=== PATIENT | male | born 1960 | race Caucasian/White ===

== ENCOUNTER → 2021-10-02 12:43 | Outpatient (CLI) | payer BC, SELFPAY | PROVIDERS: Visit Provider Urology | DX: Z01.812 Encounter for preprocedural laboratory examination (principal); Z11.52 Encounter for screening for COVID-19; R97.20 Elevated prostate specific antigen [PSA] | CPT/HCPCS: C9803; U0003; U0005 ==

== ENCOUNTER 2021-10-05 09:01 | Day surgery (SDC) | payer BC, SELFPAY ==
[2021-10-02 10:58] VITALS: BMI 29.8
[2021-10-05 09:30] VITALS: BP 137/79; PULSE 79; RESP 18; TEMP 36.4; O2SAT 99
--- NOTE | 2021-10-05 10:06 | HMH.ANESCL ---
[facility] Anesthesia Checklist - Patient Identification Patient Identification: Arm Band, Verbal (Name & ) - Structural Data Admitted From: Home Planned Operative Procedure/s: Prostate BX Consent for Planned Operative Procedure(s) Verified: Yes Verified Documents: Surgical Consent - NPO Status Verified Time NPO: 00:00 - Additional verifications Anesthesia Reactions: No Hx Blood Transfusions: No Blood Transfusion Reaction: No - Airway Assessment C-Spine Mobility Assessed: Yes TMJ Mobility Assessed: Yes Dentition: Good Dentition - Neurological Assessment Level of Consciousness: Awake, Alert, Appropriate - Anesthesia Plan Anesthesia Risk discussed: Yes ASA Class: II Anesthesia Type: MAC [facility] History I have reviewed the patient's past medical history: Yes Medical History: Reports:: Hyperlipidemia, Hypertension Denies:: Cancer, Diabetes Mellitus Type 1, Diabetes Mellitus Type 2, Internal Pacemaker, MRSA, Seizures *Have you ever received a pneumonia vaccine?: No *Have you received a flu vaccine this season?: No Other Medical History: Reports: Arthritis. Denies: Blood Transfusion Reaction Anesthesia experience/problems:: none Other Surgeries: Yes: No Previous Surgery, Colonoscopy. No: Pacemaker Amputation: No Fractures: No - *Social History Last grade of school completed: High school graduate Smoking Status: Current every day smoker Tobacco Type: cigarettes # Packs/Day (cigarettes): 1 Alcohol Intake: never Alcohol Intake Frequency:: a few times a week Substance Use Type: denies use *Occupational Status:: employed Housing: house Household Members: spouse *Travel in the last 8 weeks: None Family Hx:: Cancer, Diabetes, Heart Attack, Hypertension
[2021-10-05 11:30] VITALS: BP 119/80; PULSE 66; RESP 18; TEMP 36.1; O2SAT 99
--- NOTE | 2021-10-05 11:42 | P.OP_ITS ---
Date of procedure: 10/05/21 Pre-op Diagnosis:: Elevated PSA Post-op Diagnosis:: Elevated PSA Procedure performed:: Transrectal ultrasound-guided prostate biopsy Surgeon:: Mahesh Crane MD HYDRAULIC PILE HAMMER OPERATOR:: Gordo Fischer Anesthesia: MAC Estimated blood loss (mL): 0 Clinical Note:: 60-year-old white male with PSA of 5.7 and abnormal digital rectal examination with some irregularity on the right side of prostate presents for prostate biopsy. Operative findings:: Prostate measured 36.8 cm?. There was some hypoechoic areas on the right side. No evidence of calcifications or hyperechoic areas. Operative note:: Patient taken to the operating room after informed consent was obtained. He had taken preoperative oral antibiotics and enema preoperatively. Monitored anesthesia care was administered and patient placed into the left lateral decubitus position. After adequate analgesia the transrectal ultrasound probe was placed into the rectum and the prostate was easily visualized. It was measured at 36.8 cm?. There was evidence of a couple of hypoechoic areas on the right side but none on the left. There is no evidence of calcifications or hyperechoic areas. Local anesthetic was placed into the neurovascular bundles bilaterally and 14 biopsies then taken with 2 biopsies from the right lateral midportion and 2 from the left apex. No bleeding was noted during the case. The probe removed. Patient tolerated well. Condition: stable Disposition: same day Specimens:: Prostate biopsy x14 Complications:: None
[2021-10-05 11:45] VITALS: BP 123/77; PULSE 59; RESP 18; O2SAT 98
[2021-10-05 12:00] VITALS: BP 125/87; PULSE 68; RESP 18; O2SAT 99
== END 2021-10-05 12:00 | disposition home or self-care (01) ==
LOC: OR 09:03
PROVIDERS: PCP Family Medicine; Visit Provider Urology
PROC: (CPT 55700; principal; 2021-10-05 10:30)
DX: R97.20 Elevated prostate specific antigen [PSA] (principal); E78.5 Hyperlipidemia, unspecified; I10 Essential (primary) hypertension; M19.90 Unspecified osteoarthritis, unspecified site; Z72.0 Tobacco use; Z79.82 Long term (current) use of aspirin; Z79.899 Other long term (current) drug therapy; Z80.9 Family history of malignant neoplasm, unspecified; Z83.3 Family history of diabetes mellitus; Z82.3 Family history of stroke; Z82.49 Family history of ischemic heart disease and other diseases of the circulatory system
CPT/HCPCS: 55700; 76942

== ENCOUNTER 2022-03-04 08:33 | Day surgery (SDC) | payer BC, SELFPAY ==
[2022-03-01 08:33] VITALS: BMI 30.4
[2022-03-04 08:58] VITALS: BP 134/89; PULSE 82; RESP 18; TEMP 36.3; O2SAT 96
--- NOTE | 2022-03-04 09:30 | P.PN_ITS ---
[facility] Medical History Hyperlipidemia Hypertension Surgical History History of prostate biopsy Family History Mother Family history of cancer Social History Smoking Status: Current some day smoker tobacco type: cigarettes packs per day: 1 alcohol intake: current substance use type: denies use current occupational status: employed Travel in the last 8 weeks: None household members: spouse housing: house caffeine: Yes [facility] Anesthesia Checklist Patient Identification Patient Identification: Arm Band and Family Structural Data Admitted From: Home Planned Operative Procedure/s: colonoscopy Consent for Planned Operative Procedure(s) Verified: Yes Verified Documents: Surgical Consent and History and Physical NPO Status Verified Time NPO: 00:00 Additional verifications Patient : No Anesthesia Reactions: No Hx Blood Transfusions: No Blood Transfusion Reaction: No Cephalosporin Allergy: No Previous Colonoscopy: No Cardiovascular Assessment Heart Sounds: S1 & S2 Peripheral Edema: No Airway Assessment C-Spine Mobility Assessed: Yes TMJ Mobility Assessed: Yes Dentition: Good Dentition Neurological Assessment Level of Consciousness: Awake, Alert, Appropriate and Follows Commands Hx Seizures: No Numbness or tingling in extremities: No Genitourinary Assessment Voided infection prevention specialist to O.R.: Yes Anesthesia Plan Anesthesia Risk discussed: Yes ASA Class: II Anesthesia Type: MAC
[2022-03-04 09:38] VITALS: O2SAT 99
--- NOTE | 2022-03-04 09:45 | HMH.SCOPE ---
Procedure: Date: 03/04/22 Patient Date of :: 1960 Procedure Performed:: Screening colonoscopy Indications:: Screening for colon cancer - low risk Performing Provider:: Aida Harris MD Referring Provider:: Ramon Christianson MD Sedation:: Propofol Procedure:: After placing the patient in the left lateral decubitus position, the colonoscopy was gently inserted into the rectum and under direct visualization advanced to the cecum which was identified by transillumination in the right lower quadrant, identification of the ileocecal valve, appendiceal orifice, and cecal strap. Color, texture, mucosa, and anatomy of the colon were carefully examined with the scope. Findings:: Anal canal: normal Rectum: normal Sigmoid colon: normal without polyps or inflammatory changes Descending colon: normal without polyps or inflammatory changes Splenic flexure: normal Transverse colon: normal without polyps or inflammatory changes Hepatic flexure: normal Ascending colon: normal without polyps or inflammatory changes Cecum: normal Terminal ileum: not visualized Impression: Normal colonoscopy Recommendations:: Follow up evaluation in about TEN years or so, sooner if clinically indicated Complications:: None Estimated blood obtained (mL): 0
[2022-03-04 09:52] VITALS: BP 102/72; PULSE 69; RESP 18; TEMP 36.1; O2SAT 95
[2022-03-04 10:02] VITALS: BP 123/79; PULSE 66; RESP 17; O2SAT 95
[2022-03-04 10:12] VITALS: BP 115/83; PULSE 68; RESP 18; O2SAT 95
[2022-03-04 10:22] VITALS: BP 142/87; PULSE 72; RESP 18; O2SAT 97
== END 2022-03-04 10:28 | disposition home or self-care (01) ==
PROVIDERS: PCP Family Medicine; Visit Provider Internal Medicine Gastroenterology
PROC: 0DJD8ZZ Inspection of Lower Intestinal Tract, Via Natural or Artificial Opening Endoscopic (ICD-10-PCS; CPT 45378; principal; 2022-03-04 09:30)
DX: Z12.11 Encounter for screening for malignant neoplasm of colon (principal); Z72.0 Tobacco use; Z79.899 Other long term (current) drug therapy
CPT/HCPCS: 45378

== ENCOUNTER → 2022-04-30 08:18 | Outpatient (CLI) | payer BC, SELFPAY ==
--- NOTE | 2022-04-30 | CA_ITS ---
APPROVED REPORT Exam: Exercise Treadmill Technologist: Kelli Teran, Ht: 6 ft 4 in Wt: 250 lbs BSA: 2.44 m2 HR: 75 bpm BP: 154/103 mmHg Medical History Medications: Aspirin,,,,, RoSUVASTATIN,,,,, Stress Test Details Test: Davie HR Resting HR: 78 bpm Max Heart Rate (APMHR): 159 bpm Max HR Achieved: 138 bpm Target HR (85% APMHR): 135 bpm % of APMHR: 87 Recovery HR: 88 bpm BP Resting BP: 157/108 mmHg Max BP: 217/104 mmHg Recovery BP: 169.0/99.0 mmHg ECG Resting ECG: SR Clinical Exercise duration: 07:43 min Highest Stage Achieved: III Exercise capacity: 10.1 METs Stress ECG Conclusion Symptoms: No chest pain. SOA with peak exercise. Stopped due to leg pain Arrhythmias/Ectopy: PVCs noted- ventricular couplet @ peak exercise. ST depression of 2mm at exercise. Is upsloping, but coupled with poor fitness and exercise induced PVCs, I would consider this a postiive test and recommend further evaluation for cardiac ischemia. Test Summary REST . . . . . . . Sitting REST . . . . . . . Standing REST 07:09 0.0 0.0 78 . 157/108 . . Stage 1 01:00 10.0 1.7 93 . . . . Stage 1 02:00 10.0 1.7 102 . . . . Stage 1 03:00 10.0 1.7 104 . 182/102 . . Stage 2 01:00 12.0 2.5 112 . . . . Stage 2 02:00 12.0 2.5 115 . . . . Stage 2 03:00 12.0 2.5 119 . 178/106 . . Stage 3 01:00 14.0 3.4 129 . . . . Stage 3 01:43 14.0 3.4 137 . . . Stop exercise at 07:43 RECOVERY 01:00 0.0 0.0 115 . 190/102 . . RECOVERY 02:00 0.0 0.0 109 . 190/102 . . RECOVERY 03:00 0.0 0.0 97 . 217/104 . . RECOVERY 04:00 0.0 0.0 96 . 191/ 97 . . RECOVERY 05:00 0.0 0.0 93 . 191/ 97 . . RECOVERY 06:00 0.0 0.0 91 . 172/ 98 . . RECOVERY 07:00 0.0 0.0 91 . 172/ 98 . . RECOVERY 08:00 0.0 0.0 91 . 170/ 92 . . RECOVERY 09:00 0.0 0.0 88 . 169/ 99 . . RECOVERY 09:07 0.0 0.0 87 . 169/ 99 . . Electronically signed by : Karri Christianson MD 04/30/2022 16:43:49
== END ==
PROVIDERS: PCP Family Medicine; Visit Provider Family Medicine
DX: I10 Essential (primary) hypertension (principal); I49.9 Cardiac arrhythmia, unspecified
CPT/HCPCS: 93017

== ENCOUNTER → 2022-06-02 07:53 | Outpatient (CLI) | payer BC, SELFPAY ==
--- NOTE | 2022-06-02 | CA_ITS ---
APPROVED REPORT Exam: Exercise Treadmill Technologist: Latasha Dill Ht: 6 ft 4 in Wt: 250 lbs BSA: 2.44 m2 HR: 76 bpm BP: 144/100 mmHg Indications: Abnormal GXT, REN Medical History Medications: Amlodipine,,,,, Aspirin,,,,, Losartan,,,,, HCTZ,,,,, Stress Test Details Test: Davie HR Resting HR: 84 bpm Max Heart Rate (APMHR): 159.163747 bpm Max HR Achieved: 138 bpm Target HR (85% APMHR): 135.300215 bpm % of APMHR: 86.79 Recovery HR: 90 bpm BP Resting BP: 144.0/100.0 mmHg Max BP: 192.0/100.0 mmHg Recovery BP: 145.0/85.0 mmHg ECG Resting ECG: Normal sinus rhythm, left axis deviation, incomplete right bundle branch block, PVC Clinical Exercise duration: 08:31 min Highest Stage Achieved: Exercise capacity: 10.1 METs Stress ECG Conclusion Patient exercised 8:30 on Davie Protocol going into stage III. Test stopped due to shortness of air, fatigue. Symptoms: No chest pain. Arrhythmias/Ectopy: Occasional PVC. Occasional PAC. ST-T Changes: 1-1.[address] depression anterolaterally. In recovery, the ST depression becomes slightly downsloping. Conclusion: EKG changes positive for ischemia. Myoview images reported separately. Test Summary REST . . . . . . . Sitting REST . . . . . . . Standing REST 05:54 0.0 0.0 84 . 144/100 . . Stage 1 01:00 10.0 1.7 95 . . . . Stage 1 02:00 10.0 1.7 98 . . . . Stage 1 03:00 10.0 1.7 100 . 184/104 . . Stage 2 01:00 12.0 2.5 107 . . . . Stage 2 02:00 12.0 2.5 111 . . . . Stage 2 03:00 12.0 2.5 114 . 192/100 . . Stage 3 01:00 14.0 3.4 125 . . . . Stage 3 . . . . . . . Myoview Injected Stage 3 02:00 14.0 3.4 132 . . . . Stage 3 02:31 14.0 3.4 135 . . . Stop exercise at 08:31 RECOVERY 01:00 0.0 0.0 116 . . . . RECOVERY 02:00 0.0 0.0 103 . . . . RECOVERY 03:00 0.0 0.0 99 . 188/ 88 . . RECOVERY 04:00 0.0 0.0 96 . 174/ 90 . . RECOVERY 05:00 0.0 0.0 96 . 174/ 90 . . RECOVERY 06:00 0.0 0.0 90 . 156/ 84 . . RECOVERY 07:00 0.0 0.0 90 . 145/ 85 . . RECOVERY 08:00 0.0 0.0 90 . 145/ 85 . . RECOVERY 09:00 0.0 0.0 90 . 144/ 86 . . RECOVERY 09:21 0.0 0.0 89 . 144/ 86 . . Electronically signed by : Desmond Escalante MD 06/02/2022 11:14:57
--- NOTE | 2022-06-02 | CA_ITS ---
FINAL REPORT TECHNIQUE: Color Doppler, duplex Doppler and alvarado scale sonography of the bilateral neck arterial vasculature was performed. Velocities were measured in the carotid arteries. Stenosis evaluation based on the validated velocity criteria. CLINICAL HISTORY: .jeremy, abn stress test FINDINGS: The peak systolic velocity of the right common carotid artery is 103 cm/s. The peak systolic velocity of the right internal carotid artery is 103 cm/s and end diastolic velocity 25 cm/s. The ICA/CCA ratio is 1.0. A mild amount of plaque is present. The right external carotid artery is patent. The right vertebral artery is patent with antegrade flow. The peak systolic velocity of the left common carotid artery is 88 cm/s. The peak systolic velocity of the left internal carotid artery is 80 cm/s and end diastolic velocity 20 cm/s. The ICA/CCA ratio is 0 point. A mild amount of plaque is present. The left external carotid artery is patent.The left vertebral artery is patent with antegrade flow. IMPRESSION: Less than 50% bilateral carotid stenoses. Bilateral patent vertebral arteries with antegrade flow. If indicated, CTA or MRA could further evaluate. Reviewed, Interpreted and Dictated by Gentry Ren III, MD Transcribed by Annalee Meyers Authenticated and [facility]
--- NOTE | 2022-06-02 08:03 | NM_ITS ---
APPROVED REPORT Exam: Nuclear Stress Test Indication: HTN, HYPERLIPIDEMIA, FM HX, ABN EKG Patient Location: Outpatient Stress Tech: Kelli Blunt [place] Tech:Germania Alvarado, ARRT, RT (R)(N) Ht: 6 ft 4 in Wt: 254 lbs HR: 84 bpm BP: 144/100 mmHg BSA: 2.45 m2 TID: 1.03 BMI: 30.9 History: HTN, HYPERLIPIDEMIA, FM HX, ABN EKG Procedure: Patient exercised on Davie protocol 8:31 minutes and sec, resting heart rate 84 bpm, resting blood pressure 144/100 mmHg, with exercise maximum heart rate achived was 138 bpm which is 87 % of the maximum predicted heart rate and blood pressure was 192/100 mmHg. Test was stopped due to SOB. Patient has good exercise capacity, achieved 10.1 METs of workload on treadmill, the blood pressure response to exercise was Adequate. Electrocardiogram Resting electrocardiogram shows sinus rhythm right bundle branch block, with exercise there is 1 mm horizontal to downsloping ST segment depression noted from the baseline EKG more pronounced in the recovery. The EKG portion of the exercise Myoview is positive for ischemia. Cardiac Stress and Resting SPECT Images: Cardiac Stress and Resting SPECT images were obtained using technetium 99m Myoview 32.1 mCi stress and 10.03 mCi at rest. Gated SPECT for analysis of segmental wall motion and calculation of the ejection fraction also done. Prone images were also obtained. Cardiac stress and rest SPECT may show a fixed defect involving the inferior wall with decreased contractility in the gated SPECT is likely secondary to myocardial scarring, in addition there is reversible ischemia involving the anterolateral wall. Computer derived ejection fraction is 51% with moderate inferior wall hypokinesis. Conclusion: 1. The EKG portion of the exercise Myoview is positive for ischemia, patient has good exercise capacity achieved 10.1 METs of workload on treadmill, the blood pressure response to exercise was adequate. 2. Scintigraphic evidence of myocardial scarring involving the inferior wall, in addition there is reversible ischemia involving the anterolateral wall, computer derived ejection fraction is 51% with segmental wall motion abnormality described above, right ventricle is normal size and contractility. 3. Abnormal exercise Myoview study. Electronically signed by : Desmond Escalante MD 06/02/2022 11:24:20
--- NOTE | 2022-06-02 09:30 | HMH.ITSHM ---
Current Home Medications as stated by this patient Dennis Perry or kiosk sales representative. []LOSARTAN HYDROCHLOROTHIAZIDE ASA AMLODIPINE
== END ==
PROVIDERS: PCP Family Medicine; Visit Provider Family Medicine
DX: R94.39 Abnormal result of other cardiovascular function study (principal)
CPT/HCPCS: 78452; 93017; 93880; A9502

== ENCOUNTER → 2022-06-17 12:30 | Outpatient (CLI) | payer BC, SELFPAY ==
[2022-06-17 12:58] LABS: Basophils # 0.1 K/mm3 (0-0.2); Basophils % 1.4 % (0.1-2.0); Eosinophils # 0.3 K/mm3 (0.0-0.4); Hematocrit 42.1 % (42.0-52.0); Hemoglobin 14.9 g/dL (14.1-18.0); Lymphocytes # 2.8 K/mm3 (0.7-4.5); Lymphocytes % 31.4 % (10-50); Mean Corpuscular HGB Conc 35.5 g/dL (31.8-35.4); Mean Corpuscular Hemoglobin 31.9 pg (27.0-31.2); Mean Platelet Volume 7.9 fl (7.4-10.4); Monocytes # 0.6 K/mm3 (0.1-1.0); Monocytes % 6.8 % (1.7-9.3); Neutrophils # 5.2 K/mm3 (1.8-7.8); Neutrophils % 57.4 % (37.0-80.0); Platelet Count 307 K/mm3 (142-424); Red Blood Count 4.68 M/mm3 (4.60-6.20); Red Cell Distribution Width 13.6 % (11.5-17.5)
[2022-06-17 13:58] LABS: Anion Gap 8.7 mEq/L (5-15); Blood Urea Nitrogen 21 mg/dl (9-20); Calcium 8.9 mg/dl (8.4-10.2); Carbon Dioxide 31 mmol/L (22.0-30.0); Chloride 103 mmol/L (98-107); Estimated Glomerular Filt Rate 86 ml/min (>60); GFR (African American) 104 ML/MIN (>60); Glucose 90 mg/dl (74-100); Potassium 3.7 mmoL/L (3.5-5.1); Sodium 139 mmol/L (136-145)
== END ==
PROVIDERS: PCP Family Medicine; Visit Provider Physician Assistant
DX: I44.4 Left anterior fascicular block (principal); I10 Essential (primary) hypertension; E78.5 Hyperlipidemia, unspecified; R94.31 Abnormal electrocardiogram [ECG] [EKG]; R94.39 Abnormal result of other cardiovascular function study; I63.9 Cerebral infarction, unspecified; Z82.49 Family history of ischemic heart disease and other diseases of the circulatory system
CPT/HCPCS: 36415; 80048; 85025

== ENCOUNTER 2022-06-18 14:23 | Observation (INO) | payer BC, SELFPAY ==
[2022-06-18] VITALS (19 sets, daily range): BP systolic 125–169; BP diastolic 74–113; PULSE 62–80; RESP 16–20; TEMP 36.4–36.9; O2SAT 95–99; BMI 30.4
--- NOTE | 2022-06-18 07:14 | IR_ITS ---
APPROVED REPORT Patient Location: Outpatient PROCEDURES Left heart catheterization Left ventriculogram Selective coronary angiogram Intravascular lithotripsy to the proximal LAD Drug-eluting stent deployment to the proximal and mid LAD Intravascular ultrasound to the LAD Drug-eluting stent deployment to the ostial proximal and mid circumflex artery Intravascular ultrasound of the circumflex artery Drug-eluting stent deployment to the mid to distal dominant right coronary INDICATION Coronary artery disease, Heavy calcification of the coronary arteries, High risk abnormal Myoview Informed consent was obtained prior to the procedure. COMPLICATIONS NONE Estimated Blood Loss: LESS THAN 10 ML TECHNIQUE One percent lidocaine used to anesthetize the right anterior aspect of the wrist. The right radial artery was accessed via the Seldinger technique. A 6 Greek sheath was placed in the right radial artery. 2.5 mg of verapamil, 800 mcg of nitroglycerin, 1mg Lidocaine and 5000 U Heparin were given through the arterial sheath. The papa catheter was also used to perform left heart catheterization, left ventriculogram and selective coronary angiogram. At the end the diagnostic angiogram therapeutic heparin was administered giving a therapeutic ACT and an EBU 3.5 guide catheter was placed in the left main artery. A Choice PT extra-support wire was placed down the LAD. A 3.5 x 12 mm shockwave lithotripsy balloon was deployed at 6 and 10 donis on 5 separate occasions delivering 10 pulsations for a total of 50 pulsations. Following this a 4 mm x 38 mm resolute Isreal stent was placed in the proximal to mid LAD and deployed at 20 donis. Following this a 4 mm x 22 mm resolute Isreal stent was placed proximal to the first stent back into the ostial segment of the LAD. The 2 stents did overlap and this was deployed at 20 donis. Following this an additional wire was placed into the circumflex artery and predilatation was made using a 3.5 mm balloon. A 4 mm x 38 mm resolute Dexter stent was then placed in the mid circumflex artery at 20 donis. An additional 4 mm x 30 mm resolute Isreal stent was placed proximal to the stent yet still overlapping it and placed in the ostial segment of the circumflex artery and deployed at 20 donis. Intravascular ultrasound probe was then placed into the circumflex artery which demonstrated the stent could benefit from additional dilatation of the proximal segment. A 5 mm x 12 mm noncompliant balloon was deployed at 15 donis in the proximal and midportion post dilating. KRYSTA-3 flow was present before and after the procedure. There was a small dissection in the distal LAD which temporarily shut down flow. Intravascular ultrasound probe demonstrated great stent apposition in the proximal LAD with no encroachment in the left main artery with wide patency of the left main artery as well as the circumflex artery. Wire was placed down into the LAD and a 3.5 x 22 mm resolute Dexter stent was deployed at 16 donis reducing the stenosis to 0%. The balloon was brought back and deployed at 24 donis to mesh the 2 stents. After achieving excellent angiographic results with KRYSTA-3 flow down the LAD and circumflex artery the apparatus was removed and a Poppa guide catheter was placed in the right coronary artery followed by a Choice PT extra-support wire being placed distally. A 4 mm x 38 mm resolute Isreal stent was deployed at 20 donis reducing the severe stenosis to 0%. KRYSTA-3 flow was present before and after the procedure. At the end of the procedure the apparatus was removed the sheath was removed and hemostasis was achieved using TR banding patient was transferred to the postop putting in stable addition ANGIOGRAPHIC RES
[2022-06-18 14:20] LABS: CATHL Activated Clotting Time > 400 SEC (74-125)
[2022-06-18 14:21] LABS: CATHL Activated Clotting Time > 400 SEC (74-125)
--- NOTE | 2022-06-18 14:57 | PC.NURSE ---
PT ARRIVED VIA STRETCHER FROM MASK DESIGN ENGINEER
--- NOTE | 2022-06-18 15:11 | HMH.PHAINT1 ---
Pharmacy Intervention Comments: MEDICATION RECONCILIATION COMPLETE USING EXTERNAL PHARMACY FILL HISTORY AND RECENT CARDIOLOGY OFFICE VISIT NOTE.
--- NOTE | 2022-06-18 17:40 | EXP.HP ---
History of Present Illness *Admission Date: 06/18/22 *Reason for visit:: S/P cardiac cath with stents *History of present illness: Mr. Perry is a 61-year-old male who was seen in the cardiology office to follow-up on an abnormal stress test. It was felt at that time he would need a cardiac cath. He had a cath performed today and he had severe to critical three-vessel coronary disease. He received 6 stents and was started on Brilinta and aspirin. It was felt he would need to be kept overnight on telemetry. [facility] Disclaimer: The information contained in this section may have been updated after the patient was seen, as this information can be updated by other users. Medical History Cardiovascular stress test abnormal Hyperlipidemia Hypertension Surgical History History of prostate biopsy Hx of cardiac cath Hx of colonoscopy Family History (Updated 06/18/22 @ 17:42 by DESHAWN Strong) Diabetes Family history of cancer Mother Family history of AK (myocardial infarction) Social History Smoking Status: Current some day smoker tobacco type: cigarettes packs per day: 1 alcohol intake: current substance use type: denies use current occupational status: employed Travel in the last 8 weeks: None household members: spouse housing: house caffeine: Yes Review of Systems Constitutional Constitutional: Denies fatigue, Denies headache(s) and Denies weakness Eyes Eyes: Denies blurry vision and Denies diplopia ENT Ears, Nose, Mouth, and Throat: Denies headache(s), Denies nasal congestion, Denies sore throat and Denies vertigo *Cardiovascular Cardiovascular: Denies chest pain, Denies dyspnea and Denies leg edema *Respiratory Respiratory: Denies cough and Denies dyspnea *Gastrointestinal Gastrointestinal: Denies abdominal pain, Denies loose stools, Denies nausea and Denies vomiting *Genitourinary Genitourinary: Denies difficulty urinating and Denies dysuria *Musculoskeletal Musculoskeletal: Denies arthralgias and Denies myalgias *Neurologic Neurologic: Denies headache(s), Denies vertigo and Denies weakness Endocrine Endocrine: Denies fatigue Meds Home Medications and Allergies Home Medications Medication Instructions Recorded Confirmed Type aspirin 325 mg tablet 325 mg PO DAILY Blood thinner 08/27/21 06/18/22 History hydrochlorothiazide 25 mg tablet 25 mg PO DAILY High blood pressure 08/27/21 06/18/22 History losartan 50 mg tablet 50 mg PO BID High blood pressure 08/27/21 06/18/22 History rosuvastatin 20 mg tablet 20 mg PO HS Cholesterol 06/10/22 06/18/22 History amlodipine 10 mg tablet 10 mg PO DAILY High blood pressure 06/18/22 06/18/22 History metoprolol succinate 25 mg 25 mg PO DAILY High blood pressure 06/18/22 06/18/22 History tablet,extended release 24 hr (Toprol XL) New Prescriptions to Start Prescriptions: Allergies Allergy/AdvReac Type Severity Reaction Status Date / Time No Known Allergies Allergy Verified 06/10/22 09:22 Exam Data for Last 24 hours Vital signs and Labs for Last 24 Hours: Temp Pulse Resp BP Pulse Ox 98.2 F 78 16 153/84 H 98 06/18/22 16:30 06/18/22 16:30 06/18/22 16:30 06/18/22 16:30 06/18/22 16:30 Laboratory Results - last 24 hr 06/18/22 13:36: Activated Clotting Time > 400 H* 06/18/22 14:40: Activated Clotting Time > 400 H* I & O for Last 24 hours: Intake & Output 06/16/22 06/17/22 06/18/22 06/19/22 11:59 11:59 11:59 11:59 Intake Total 1000 / 1000 Output Total 450 / 450 Balance 550 / 550 Weight 250 lb 250 lb 7 oz Constitutional Constitutional: no acute distress *Routine HEENT Exam Head: Present normocephalic and atraumatic Eye: Present EOMI and PERRL ENT: Present mucous membranes moist *Routine Neck Exam Neck: Present supple and full ROM *Routi
[2022-06-18 20:15] LABS: Coronavirus 19, PCR Not Detected (NotDetected); Influenza A, PCR Not Detected (NotDetected); Influenza B, PCR Not Detected (NotDetected)
--- NOTE | 2022-06-18 20:21 | PC.NURSE ---
Rounded on pt at this time. Pt states he is cleopatra comfortable and has no needs at this time. Call light within reach.
[2022-06-19] VITALS: PULSE 65
[2022-06-19 03:19] VITALS: BP 102/51; PULSE 74; RESP 18; TEMP 36.9; O2SAT 98
[2022-06-19 03:20] VITALS: BMI 30.4
--- NOTE | 2022-06-19 05:10 | PC.NURSE ---
pt rested well through the night, no acute distress, vss, right radial site cdi without hematoma and drainage, lungs cta, telemetry reveals nsr with 1st avb and bbb, skin pwd and without edema, pt is alert and oriented x4.
[2022-06-19 07:52] VITALS: BP 131/82; PULSE 80; RESP 18; TEMP 36.4; O2SAT 99
[2022-06-19 08:00] VITALS: O2SAT 97
[2022-06-19 08:48] LABS: Basophils # 0.1 K/mm3 (0-0.2); Basophils % 0.5 % (0.1-2.0); Eosinophils # 0.2 K/mm3 (0.0-0.4); Eosinophils % 1.5 % (0.1-12.0); Hemoglobin 14.6 g/dL (14.1-18.0); Lymphocytes # 2.2 K/mm3 (0.7-4.5); Lymphocytes % 15.4 % (10-50); Mean Corpuscular Hemoglobin 29.9 pg (27.0-31.2); Mean Corpuscular Volume 87.9 fl (80-94); Mean Platelet Volume 8.1 fl (7.4-10.4); Monocytes # 0.6 K/mm3 (0.1-1.0); Monocytes % 4.5 % (1.7-9.3); Neutrophils # 10.9 K/mm3 (1.8-7.8); Neutrophils % 78.2 % (37.0-80.0); Platelet Count 324 K/mm3 (142-424); Red Blood Count 4.89 M/mm3 (4.60-6.20); Red Cell Distribution Width 13.6 % (11.5-17.5)
[2022-06-19 09:01] LABS: Chloride 105 mmol/L (98-107); Sodium 138 mmol/L (136-145)
[2022-06-19 09:02] LABS: Potassium 4.4 mmoL/L (3.5-5.1)
[2022-06-19 09:04] LABS: Blood Urea Nitrogen 13 mg/dl (9-20); Creatinine Clearance Estimated 124 mL/min (50-200); Estimated Glomerular Filt Rate 115 ml/min (>60); GFR (African American) 139 ML/MIN (>60)
[2022-06-19 09:05] LABS: Anion Gap 15.4 mEq/L (5-15); Calcium 8.7 mg/dl (8.4-10.2); Carbon Dioxide 22 mmol/L (22.0-30.0); Glucose 185 mg/dl (74-100)
--- NOTE | 2022-06-19 10:04 | EXP.ACUTE.PN ---
Subjective *Date: 06/19/22 *Time: 10:04 Interval history: The patient has remained stable overnight. He was able to get some rest. He is anxious for discharge. He has no shortness of breath no fever but I noticed that his white count is elevated this morning. Blood chemistries are stable. I will discharge him today and see him in follow-up on Tuesday of this coming week. Medical Exam Vital signs and Labs for Last 24 Hours: Vital Signs Temp Pulse Pulse Resp BP Pulse Ox 06/19/22 07:52 97.6 F 80 18 131/82 99 06/19/22 03:19 98.4 F 74 18 102/51 L 98 06/19/22 00:00 65 06/18/22 23:41 98.4 F 80 18 125/74 96 06/18/22 21:00 78 18 138/76 96 06/18/22 20:00 97.5 F L 70 18 131/77 96 06/18/22 19:00 97.5 F L 78 18 135/78 96 06/18/22 20:00 97 06/18/22 20:00 75 06/18/22 19:22 97.5 F L 06/18/22 18:00 68 17 154/98 H 97 06/18/22 17:00 63 18 138/96 H 98 06/18/22 16:00 62 06/18/22 16:30 98.2 F 78 16 153/84 H 98 06/18/22 16:00 98.3 F 75 17 153/98 H 98 06/18/22 15:30 72 16 155/93 H 98 06/18/22 15:15 97.9 F 67 17 157/99 H 99 06/18/22 14:50 98 F 80 20 143/100 H 95 06/18/22 14:30 78 18 169/110 H 98 06/18/22 14:15 74 18 148/95 H 98 06/18/22 14:10 68 18 149/97 H 97 06/18/22 14:05 74 18 164/108 H 98 06/18/22 14:01 73 20 157/113 H 95 Intake and Output 06/18/22 06/19/22 06/19/22 19:59 03:59 11:59 Intake Total 1240 / 1600 360 / 1600 Output Total 450 / 600 0 / 600 150 / 600 Balance 790 / 1000 0 / 1000 210 / 1000 Intake: Intake, Oral Amount 240 / 600 360 / 600 Intake, Other Amount 1000 / 1000 Output: Output, Urine Amount 450 / 600 0 / 600 150 / 600 Other: Intake, Other Source Saline Solution Number of Voids 1 Number of Unmeasured Voids 1 3 3 Weight 250 lb 7 oz 250 lb 1 oz Patient Weight 06/19/22 11:59 Weight 250 lb 1 oz Laboratory Results - last 24 hr 06/18/22 13:36: Activated Clotting Time > 400 H* 06/18/22 14:40: Activated Clotting Time > 400 H* 06/18/22 19:57: SARS-CoV-2 (PCR) Not detected, Influenza A Untype (PCR) Not detected, Influenza Type B (PCR) Not detected 06/19/22 08:43: WBC 14.0 H D, RBC 4.89, Hgb 14.6, Hct 43.0, MCV 87.9, MCH 29.9, MCHC 34.0, RDW 13.6, Plt Count 324, MPV 8.1, Neut % (Auto) 78.2, Lymph % (Auto) 15.4, [place] % (Auto) 4.5, Eos % (Auto) 1.5, Baso % (Auto) 0.5, Neut # (Auto) 10.9 H, Lymph # (Auto) 2.2, [place] # (Auto) 0.6, Eos # (Auto) 0.2, Baso # (Auto) 0.1 06/19/22 08:43: Sodium 138, Potassium 4.4, Chloride 105, Carbon Dioxide 22, Anion Gap 15.4 H, BUN 13 D, Creatinine 0.70 D, Estimated Creat Clear 124, Estimated GFR 115, Est GFR ( Amer) 139 D, Glucose 185 H, Calcium 8.7 I & O for Labs for Last 24 Hours: Intake & Output 06/16/22 06/17/22 06/18/22 06/19/22 11:59 11:59 11:59 11:59 Intake Total 1600 / 1600 Output Total 600 / 600 Balance 1000 / 1000 Weight 250 lb 250 lb 1 oz Head: Present normocephalic Neck: Present normal inspection Respiratory: Present CTA bilaterally Cardiac: Present Regular Rate and Regular Rhythm GI: Present soft; Absent tenderness Rectal (male): Present deferred (male): Present deferred Extremities: Present normal inspection and edema Skin: Present intact Neuro: Present alert and oriented x 3 Assessment and Plan *Assessment and plan (1) Status post coronary artery stent placement: Status: Acute Category: Surgical Code(s): Z95.5 - Presence of coronary angioplasty implant and graft (2) Coronary artery disease: Status: Acute Category: Medical Code(s): I25.10 - Atherosclerotic heart disease of [place] coronary artery without angina pectoris (3) Hypertension: Status: Acute Qualifiers: Hypertension type: unspecified Qualified Code(s): I10 - Essential (primary) hypertension Category: Medical Code(s): I
--- NOTE | 2022-06-19 10:27 | HMH.PHACL ---
[facility] [employer] D[employer] Feeder Discharge Med Card Reader: Dennis Perry has received discharge medication counseling on the following medications: ASPIRIN (NEW) BRILINTA (NEW) METOPROLOL ROSUVASTATIN LOSARTAN NEW PRESCRIPTIONS WERE SENT TO CLINIC PHARMACY, SINCE [facility] IS CLOSED TODAY. PATIENT VERBALIZED UNDERSTANDING AND HAD NO QUESTIONS AT THIS TIME. -JASWINDER LA, KISHAND
--- NOTE | 2022-06-21 13:17 | CARE MANAGER ---
Attempted post-discharge phone interview, no answer. Left message for return call.
--- NOTE | 2022-06-21 16:44 | EXP.DC.SUM ---
General Admission date:: 06/18/22 Discharge date: 05/19/22 HPI HPI HPI: Mr. Perry is a 61-year-old male who was seen in the cardiology office to follow-up on an abnormal stress test. It was felt at that time he would need a cardiac cath. He had a cath performed today and he had severe to critical three-vessel coronary disease. He received 6 stents and was started on Brilinta and aspirin. It was felt he would need to be kept overnight on telemetry. Hospital Course Hospital Course Hospital Course: Patient was seen in the cardiology office noting an abnormal exercise Myoview study. Therefore left heart cath/coronary angiography with right radial access was planned. Cardiac cath as below documentation. Due to the stenting it was decided he needed to spend overnight in [facility]. The following day patient remained stable. He was anxious for discharge. He denied shortness of breath and had no fever. His white count was elevated. Blood chemistries were stable. He was discharged home to follow-up the following week. Cardiology was to follow-up as well. ANGIOGRAPHIC RESULTS The left main artery Normal The left anterior descending artery Has proximal calcified 40% stenosis followed by a focal concentric 90% stenosis followed by an additional 70% stenosis The circumflex artery There is a large nondominant vessel with a proximal concentric 60% stenosis and a mid vessel calcified 90% stenosis The right coronary artery Is a dominant vessel with proximal 20% stenosis and a mid vessel concentric 80 to 90% stenosis.? The posterior lateral ventricular branch is ostially occluded.? The posterior descending artery is a large vessel and has a proximal concentric 50% stenosis The ABDI ventriculogram reveals Dilated ventricle with ejection fraction of 55 to 60% The left ventricular end-diastolic pressure 20 mmHg IMPRESSION Severe to critical three-vessel coronary disease as described above Successful stenting of the ostial proximal mid LAD critical disease reduced to 0% with 3 contiguous drug-eluting stents Successful stenting of the ostial proximal and mid circumflex artery critical disease reduced to 0% with 2 contiguous drug-eluting stents Successful stenting of the mid dominant right coronary severe to critical disease reduced to 0% with 1 drug-eluting stent PLAN 1. Brilinta 90 twice daily plus aspirin 81 mg daily 2. LDL less than 55 to be achieved with high intensity statin 3. Cardiac rehabilitation 4. Avoidance of tobacco products 5. Risk factor modification Exam Data for Last 24 hours Vital signs and Labs for Last 24 Hours: Temp Pulse Resp BP Pulse Ox 97.6 F 80 18 131/82 97 06/19/22 07:52 06/19/22 07:52 06/19/22 07:52 06/19/22 07:52 06/19/22 08:00 I & O for Last 24 hours: Intake & Output 06/19/22 06/20/22 06/21/22 06/22/22 11:59 11:59 11:59 11:59 Intake Total 1600 / 1600 Output Total 600 / 600 Balance 1000 / 1000 Weight 250 lb 1 oz Narrative: Medical Exam Vital signs and Labs for Last 24 Hours: Vital Signs ? Temp Pulse Pulse Resp BP Pulse Ox ?06/19/22 07:52 ?97.6 F ? ?80 ?18 ?131/82 ?99 ?06/19/22 03:19 ?98.4 F ? ?74 ?18 ?102/51 L ?98 ?06/19/22 00:00 ? ?65 ?06/18/22 23:41 ?98.4 F ? ?80 ?18 ?125/74 ?96 ?06/18/22 21:00 ? ? ?78 ?18 ?138/76 ?96 ?06/18/22 20:00 ?97.5 F L ? ?70 ?18 ?131/77 ?96 ?06/18/22 19:00 ?97.5 F L ? ?78 ?18 ?135/78 ?96 ?06/18/22 20:00 ?97 ?06/18/22 20:00 ? ?75 ?06/18/22 19:22 ?97.5 F L ?06/18/22 18:00 ? ? ?68 ?17 ?154/98 H ?97 ?06/18/22 17:00 ? ? ?63 ?18 ?138/96 H ?98 ?06/18/22 16:00 ? ?62 ?06/18/22 16:30 ?98.2 F ? ?78 ?16 ?153/84 H ?98 ?06/18/22 16:00 ?98.3 F ? ?75 ?17 ?153/98 H ?98 ?06/18/22 15:30 ? ? ?72 ?16 ?155/93 H ?98 ?06/18/22 15:15 ?97.9 F ? ?67 ?17 ?157/99 H ?99 ?06/18/22 14:50 ?98 F ? ?80 ?20 ?143/100 H ?95 ?06/18/22 14:30 ? ? ?78 ?18 ?169/110 H ?98 ?06/18/22 14:15 ? ? ?74 ?18 ?1
== END 2022-06-19 12:15 | disposition home or self-care (01) ==
LOC: 2ND 14:24
PROVIDERS: Internal Medicine; Admitting Provider Family Medicine; PCP Family Medicine; Visit Provider Family Medicine
DX: E78.5 Hyperlipidemia, unspecified; I10 Essential (primary) hypertension; R94.31 Abnormal electrocardiogram [ECG] [EKG]; R94.39 Abnormal result of other cardiovascular function study; Z82.49 Family history of ischemic heart disease and other diseases of the circulatory system; I25.10 Atherosclerotic heart disease of native coronary artery without angina pectoris; Z79.899 Other long term (current) drug therapy; F17.210 Nicotine dependence, cigarettes, uncomplicated
CPT/HCPCS: G0379; 0715T; 36415; 80048; 85025; 85347; 92928; 92978; 92979; 93458; 99152; 99153; C1725; C1760; C1761; C1769; C1876; C9600; C9803; G0378; J1644; Q9967; U0003; U0005

== ENCOUNTER 2022-07-08 10:02 | Outpatient (RCR) | payer BC, SELFPAY | END 2022-09-21 11:45 | disposition home or self-care (01) | LOC: PT 10:02 | PROVIDERS: Visit Provider Internal Medicine | DX: I25.10 Atherosclerotic heart disease of native coronary artery without angina pectoris (principal); Z95.5 Presence of coronary angioplasty implant and graft | CPT/HCPCS: 93798 ==

== ENCOUNTER → 2022-11-24 14:37 | Outpatient (CLI) | payer BC, SELFPAY ==
--- NOTE | 2022-11-24 14:42 | XR_ITS ---
FINAL REPORT CLINICAL HISTORY: ACUTE RT KNEE PAIN, twisted right knee 1 week ago. COMPARISON: None FINDINGS: Three views of the right knee reveal no evidence of fracture or dislocation. The bony alignment is normal. There is severe degenerative change. There is chronic deformity of the medial lateral femoral condyles and medial tibial plateau. There is no evidence of joint effusion. Prepatellar soft tissue swelling is noted. IMPRESSION: Severe degenerative change and prepatellar soft tissue swelling without acute bony abnormality. Reviewed, Interpreted and Dictated by Gentry Ren III, MD Transcribed by Cookie Stauffer Authenticated and [facility]
== END ==
PROVIDERS: PCP Family Medicine; Visit Provider Physician Assistant
DX: M25.561 Pain in right knee (principal)
CPT/HCPCS: 73562

== ENCOUNTER → 2023-02-25 08:03 | Outpatient (CLI) | payer BC, SELFPAY ==
--- NOTE | 2023-02-25 08:06 | CA_ITS ---
APPROVED REPORT EXAM: Comprehensive 2D, Doppler, and color-flow Echocardiogram Apartment Coordinator: Daniela Garcia, BRIELLE, RVS Ht: 6 ft 4 in Wt: 272lbs BSA: 2.52 BP: 143/99 mmHg Indications: CAD,SOB,dilatedLV per heart cath,ex-smoker, HTN, HLD 2D Dimensions Aortic Root 2.84 cm M: 3.1 - 3.7 LA Volume 81.00 mL Left Atrium 3.71 cm M: 3.0 - 4.0 LA Volume Index [id number] mL/m2 (M/F) 16-34 LVOT 2.10 cm (M/F) 1.5-2.5 M-Mode Dimensions RVDd 2.95 cm (0.9-2.6) LA Diam 4.10 cm (1.9-4.0) LVDd 6.04 cm (3.5-5.7) Ao Diam 3.63 cm (2.0-3.7) LVDs 4.68 cm (3.5-5.7) IVSd 1.26 cm (0.6-1.1) PWd 1.17 cm (0.6-1.1) EF (Teich) 44.60% EPSs 0.57 cm FS 22.50% EDV (Teich) 182.80 mL ESV (Teich) 101.30 mL LV Diastology E Decel Time 220.00 (160-240 msec) E/A Ratio 0.97 MED E' 7.00 (< 7 cm/sec) MED A' 15.00 cm/s E'/MED E' Ratio 9.93 (>14) LAT E' 10.20 (<10 cm/sec) LAT A' 15.40 cm/s E/LAT E' Ratio 6.81 (>14) Aortic Valve LVOT Max 73.00 (70-110 cm/s) LVOT VTI 15.27 cm AoV Peak Isauro. 127.00 (50-130 cm/s) AO Peak GR. 6.40 mmHg AO Mean GR. 3.20 (<5 mmHg) AO VTI 22.66 (18-25 cm) SUE (VTI) 2.33 (2.5-4.5 cm2) Mitral Valve MV A Velocity 72.00 (40-130 cm/s) E/A Ratio 0.97 MV Decel. Time 220.00 (160-240 ms) MV Mean Gr. 1.40 (<2mmHg) Pulmonary Valve PV Peak Velocity 102.00 (50-150 cm/s) OR End VMAX 152.00 cm/s Tricuspid Valve TR P. Velocity 152.00 cm/s Left Ventricle The left ventricle is normal size (when adjusted for BSA, LVEDVi=65 ml/m2) The left ventricular systolic function is normal. The left ventricular ejection fraction is within the normal range. There is increased LV wall thickness. There is normal LV segmental wall motion. The left ventricular diastolic function is normal. LVEF is 55%. Right Ventricle The right ventricle is mildly dilated. The right ventricular systolic function is normal. Atria The left atrium size is normal. The right atrium size is normal. There is no Doppler evidence of interatrial shunt. Aortic Valve The aortic valve opens well. No aortic regurgitation is present. Mitral Valve The mitral valve is normal in structure. Trace mitral regurgitation. Tricuspid Valve The tricuspid valve leaflets are thin and pliable. Trace tricuspid regurgitation. There is insufficient TR jet to estimate RVSP. Pulmonic Valve The pulmonary valve is normal in structure. Trace pulmonic regurgitation. Great Vessels The aortic root is normal in size. The ascending aorta is not well visualized. IVC is normal in size and collapses >50% with inspiration. Pericardium There is no pericardial effusion. Other Information Study Quality: Fair Conclusion Normal biventricular systolic function. The left ventricle is normal size (when adjusted for BSA, LVEDVi=65 ml/m2) Mild RV dilatation. No significant valvular stenosis or regurgitation. Electronically signed by : Brittany Collins MD 02/28/2023 22:55:45
== END ==
PROVIDERS: PCP Family Medicine; Visit Provider Nurse Practitioner
DX: E78.5 Hyperlipidemia, unspecified (principal); I10 Essential (primary) hypertension; I25.10 Atherosclerotic heart disease of native coronary artery without angina pectoris; I44.4 Left anterior fascicular block; R06.02 Shortness of breath; Z95.5 Presence of coronary angioplasty implant and graft; Z72.0 Tobacco use
CPT/HCPCS: 93306

== ENCOUNTER → 2023-03-11 06:43 | Outpatient (CLI) | payer BC, SELFPAY ==
--- NOTE | 2023-03-11 06:47 | CT_ITS ---
FINAL REPORT TECHNIQUE: Axial CT images were performed from the lung apices through the upper abdomen. Coronal reformats were submitted. This study was performed with techniques to keep radiation doses as low as reasonably achievable (ALARA). Individualized dose reduction techniques using automated exposure control or adjustment of mA and/or kV according to the patient's size were employed. CLINICAL HISTORY: RV dilation on echo FINDINGS: There are borderline bilateral axillary nodes. There is no hilar or mediastinal mass or adenopathy. Heart size is normal. There is no pericardial or pleural effusion. Limited images of the upper abdomen are unremarkable. There is a 2 mm nodule in the right lower lobe, likely benign. IMPRESSION: Right lower lobe nodule, likely benign. Reviewed, Interpreted and Dictated by Gentry Ren III, MD Transcribed by Jennifer Arias Authenticated and [facility]
== END ==
PROVIDERS: PCP Family Medicine; Visit Provider Physician Assistant
DX: I25.10 Atherosclerotic heart disease of native coronary artery without angina pectoris (principal); I51.7 Cardiomegaly; I10 Essential (primary) hypertension; E78.5 Hyperlipidemia, unspecified; R94.31 Abnormal electrocardiogram [ECG] [EKG]; Z95.5 Presence of coronary angioplasty implant and graft
CPT/HCPCS: 71250

== ENCOUNTER → 2023-10-04 12:59 | Outpatient (CLI) | payer BC, SELFPAY | PROVIDERS: PCP Family Medicine; Visit Provider Physician Assistant | DX: G47.33 Obstructive sleep apnea (adult) (pediatric) (principal); G47.36 Sleep related hypoventilation in conditions classified elsewhere; I11.9 Hypertensive heart disease without heart failure; I25.10 Atherosclerotic heart disease of native coronary artery without angina pectoris; E78.5 Hyperlipidemia, unspecified; F17.210 Nicotine dependence, cigarettes, uncomplicated | CPT/HCPCS: G0399 ==

== ENCOUNTER 2024-01-17 11:54 | Outpatient (CLI) | payer BC, SELFPAY ==
[2024-01-17 14:17] VITALS: BMI 33.5
== END 2024-01-17 23:59 | disposition home or self-care (01) ==
LOC: DIETICIAN 11:57
PROVIDERS: PCP Family Medicine; Visit Provider Physician Assistant
DX: G47.33 Obstructive sleep apnea (adult) (pediatric) (principal); Z68.34 Body mass index [BMI] 34.0-34.9, adult